=== PATIENT | male | born 1965 | race Caucasian/White ===

== ENCOUNTER 2021-03-03 15:42 | Emergency (ER) | payer MEDICARE ==
[~2021-03-03] VITALS: Ht 180.3 cm; Wt 86.2 kg
[~2021-03-03 15:42] MED LIST: APAP500 PO; AZO URINARY P97.5 MG PO; BACTRIM DS TAB1 EACH PO; CHERATUSSIN DA480 ML PO; CIPRO250 M1 PO; FLOMAX0.4 MG PO; HYDROCODON-ACE1 EAC8 PO; IBUPROFEN 600600 M1 PO; NORCO 5-325 TA1 EACH PO; PERCOCET 5-3251 EACH PO; PHENERGAN 25 MG25 M1 PO; PREDNISONE50 MG PO; PROAIR HFA8.5 GM IH; PROMS25 WY RECTAL; PROTONIX40 M1 PO; SKELAXIN 800 M800 M1 PO; SPIRIVA; SPIRIVA INH; SYMBICORT160 MCG/4. INH; TAMIFLU30 MG PO; ULTRAM 50MG TAB50 MG PO; ZOFRAN4 MG PO; ZPAK PO
[2021-03-03 15:49] VITALS: BP 138/78
[2021-03-03] MEDS ORDERED: MELOXICAM7.5 MG PO (15:51)
[2021-03-03 16:03] LABS: URINE BLOOD 3+ (Negative); URINE CLARITY CLEAR; URINE COLOR YELLOW; URINE GLUCOSE-RANDOM NEGATIVE (Negative); URINE KETONES TRACE (Negative); URINE LEUKOCYTES-REFLEX NEGATIVE (Negative); URINE NITRITE-REFLEX NEGATIVE (Negative); URINE PROTEIN TRACE (Negative); URINE SPECIFIC GRAVITY >= 1.030 (1.005-1.030); URINE UROBILINOGEN 0.2 E.U./dl (0.2-1.0)
[2021-03-03 16:10] LABS: URINE BILIRUBIN 1+ (Negative)
[2021-03-03 16:11] LABS: ICTOTEST (BILI CONFIRMATORY) Negative (Negative)
[2021-03-03 16:21] LABS: BACTERIA-REFLEX 1-9 Few /HPF (None Seen); CASTS None Seen /LPF (None Seen); CRYSTALS None Seen /LPF (None Seen); MUCUS 0-3 Light strn/LPF (None Seen); SQUAMOUS 4-10 Moderate /LPF (0-3); URINE RBC 3-10 Few /HPF (0-2); URINE WBC-REFLEX 0-5 Rare /HPF (0-5)
== END 2021-03-03 17:18 | disposition left against medical advice (07) ==
LOC: M.ERS 15:42
PROVIDERS: Nurse Practitioner Family
DX: R10.9 Unspecified abdominal pain (principal); Z53.21 Procedure and treatment not carried out due to patient leaving prior to being seen by health care provider